=== PATIENT | male | born 1990 | race Caucasian/White ===

== ENCOUNTER 2018-01-02 20:32 | Emergency (ER) | payer MEDICARE, OTHER ==
[~2018-01-02] VITALS: Ht 167.6 cm; Wt 51.0 kg
[~2018-01-02 20:32] MED LIST: CALTTAB5 PO; DOXY100T PO; HYDR10TA16 PO; LEXA5SOL PO; MAGN400T PO; MS C30TA5 PO; OXYC-360 PO; PRED5SOL PO; PREV15CA20 PO; PRIS50TA PO; TAB-TAB PO; VITA100T15 PO; ZOFR8TAB4 PO
[2018-01-02 20:39] VITALS: BP 145/93; PULSE 99; RESP 20; TEMP 97.9; O2SAT 99
[2018-01-02] MEDS ORDERED: SODIUM CHLORIDE 0.9% FLUSH 10 ML FLUSH IVF PRN (21:00)
[2018-01-02] MEDS ORDERED: HYDR-3583 PO (21:10)
[2018-01-02] MEDS ORDERED: ALPR1TAB3 PO (21:10)
[2018-01-02] MEDS ORDERED: FENT100D T-DERMAL (21:10)
[2018-01-02] MEDS ORDERED: LOSA100T PO (21:10)
[2018-01-02] MEDS ORDERED: ZOLP10TA3 PO (21:10)
[2018-01-02] MEDS ORDERED: ESCI20TA PO (21:10)
--- NOTE | 2018-01-02 21:16 | RADRPT ---
EXAM DATE/TIME: 01/02/2018 20:57 [facility] COMPARISON: No previous studies available for comparison. INDICATIONS : Syncopal episode. MEDICAL HISTORY : Wegeners Granulomatosis. Renal disease. SURGICAL HISTORY : None. ENCOUNTER: Initial ACUITY: 1 day PAIN SCORE: 0/10 LOCATION: Bilateral chest FINDINGS: A single view of the chest demonstrates the lungs to be symmetrically aerated without evidence of mas s, infiltrate or effusion. The cardiomediastinal contours are unremarkable. Osseous structures are intact. CONCLUSION: No evidence of acute cardiopulmonary disease. Da Perez MD on January 02, 2018 at 21:14 Board Certified Radiologist. This report was verified electronically.
[2018-01-02 21:26] LABS: AUTOMATED NEUTROPHIL # 5.3 TH/MM3 (1.8-7.7); BASOPHIL % 0.3 % (0.0-2.0); EOSINOPHIL # 0.2 TH/MM3 (0-0.4); EOSINOPHIL % 2.8 % (0.0-4.0); HEMATOCRIT 33.4 % (39.0-51.0); HEMOGLOBIN 10.6 GM/DL (13.0-17.0); LYMPH % 34.2 % (9.0-44.0); MEAN CELL VOLUME 96.8 FL (80.0-100.0); MEAN CORPUSCULAR HEMOGLOBIN 30.7 PG (27.0-34.0); MEAN CORPUSCULAR HGB CONC 31.7 % (32.0-36.0); MEAN PLATELET VOLUME 8.8 FL (7.0-11.0); MONO % 1.3 % (0.0-8.0); MONOCYTE # 0.1 TH/MM3 (0-0.9); NEUT % 61.4 % (16.0-70.0); PLATELET COUNT 218 TH/MM3 (150-450); RED BLOOD COUNT 3.45 MIL/MM3 (4.50-5.90); RED CELL DISTRIBUTION WIDTH 16.4 % (11.6-17.2); WHITE BLOOD COUNT 8.7 TH/MM3 (4.0-11.0)
[2018-01-02 21:34] LABS: ALBUMIN 3.9 GM/DL (3.4-5.0); AST (GOT) 45 U/L (15-37); BICARBONATE 20.8 MEQ/L (21.0-32.0); BLOOD UREA NITROGEN 37 MG/DL (7-18); CALCIUM 8.2 MG/DL (8.5-10.1); CHLORIDE 98 MEQ/L (98-107); CREATININE 7.53 MG/DL (0.60-1.30); GLOMERULAR FILTRATION RATE 9 ML/MIN (>89); GLUCOSE,RANDOM 268 MG/DL (74-106); SODIUM (NA) 137 MEQ/L (136-145)
[2018-01-02 21:36] LABS: ACETAMINOPHEN 3.7 MCG/ML (10.0-30.0); ALT (GPT) 83 U/L (12-78)
[2018-01-02 21:37] LABS: ALKALINE PHOSPHATASE 205 U/L (45-117); TOTAL BILIRUBIN ADULT 0.3 MG/DL (0.2-1.0); TOTAL PROTEIN 6.9 GM/DL (6.4-8.2)
[2018-01-02] MEDS: NALOXONE HCL 0.4 MG/ML AMP IV PUSH PRN ×2 (22:08→23:50)
[2018-01-02 23:44] VITALS: BP 89/53; PULSE 75; RESP 15; O2SAT 95
[2018-01-03 01:08] VITALS: BP 92/48; PULSE 83; RESP 15; O2SAT 98
--- NOTE | 2018-01-03 02:55 | PD ---
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 and , now he is on chronic opioid fentanyl and PO opioids , tonight his mother found him face down on the floor unresponsive PFSH Past Medical History Asthma: No Autoimmune Disease: Yes (MAYRA'S GRANULOMATOSIS) Blood Disorders: Yes (MAYRA'S GRANULOMATOSIS) Anxiety: Yes Depression: Yes Cancer: No Cardiovascular Problems: No Diabetes: No Endocrine: No Gastrointestinal Disorders: Yes Glaucoma: No Genitourinary: No Headaches: Yes Hepatitis: No Hiatal Hernia: No Hypertension: No Immune Disorder: Yes (IGA DEFICIENCY, GOES TO [facility]) Medical other: Yes (AUTOIMMUNE DISEASE, IGA LEVELS LOW) Musculoskeletal: No Neurologic: Yes Psychiatric: Yes Reproductive: No Respiratory: Yes (PULMONARY HEMORRHAGE IN FEBRUARY 28 R/T NEW ONSET MAYRA'S GRANULOMATOSIS) Sickle Cell Disease: No Thyroid Disease: No Ulcer: Yes Past Surgical History Abdominal Surgery: No Cardiac Surgery: No Ear Surgery: No Endocrine Surgery: No Eye Surgery: No Genitourinary Surgery: No Gynecologic Surgery: No Neurologic Surgery: No Oral Surgery: No Pacemaker: No Thoracic Surgery: No Other Surgery: Yes (PORT PLACEMENT APRIL 20 2010) Social History Alcohol Use: No Tobacco Use: No Substance Use: No Allergies-Medications (Allergen,Severity, Reaction): Coded Allergies: cefazolin (Unverified Allergy, Severe, 06/05/17) SCALP ICHY diphenhydramine (Unverified Allergy, Severe, HIVES, 06/05/17) fentanyl (Unverified Allergy, Severe, Hallucinations, 06/05/17) zolpidem (Unverified Adverse Reaction, Severe, sleep walking, 06/05/17) Reported Meds & Prescriptions Reported Meds & Active Scripts Active Narcan Nasal [place] (Naloxone HCl) 4 Mg/Act [place] 4 Mg NASAL ONCE PRN Contents of 1 nasal spray as a single dose; may repeat every 2 to 3 minutes in alternating nostrils until medical assistance becomes available. Reported Fentanyl Patch 72 HR (Fentanyl) 100 Mcg/Hr Patch 100 Mcg T-DERMAL Q72H Remove old patch when new one placed. Alprazolam 1 Mg Tab 1 Mg PO Q8H PRN Losartan (Losartan Potassium) 100 Mg Tab 100 Mg PO DAILY Zolpidem (Zolpidem Tartrate) 10 Mg Tab 20 Mg PO HS PRN Escitalopram (Escitalopram Oxalate) 20 Mg Tab 20 Mg PO DAILY Hydrocodone-Acetaminophen 10-325 mg Tab 1 Tab PO Q6H PRN Review of Systems ROS Limitations: Altered Mental Status, Other: (opioid overdose) Except as stated in HPI: all other systems reviewed are Neg Physical Exam Narrative GENERAL: Patient is somnolent with blood at his right nare skin is somewhat pale SKIN: Warm and dry. HEAD: Atraumatic. Normocephalic. EYES: Pupils equal and round. No scleral icterus. No injection or drainage. ENT: No nasal bleeding or discharge. Mucous membranes pink and moist. Blood from the right nare NECK: Trachea midline. No JVD. CARDIOVASCULAR: Regular rate and rhythm. RESPIRATORY: No accessory muscle use. Clear to auscultation. Breath sounds equal bilaterally. GASTROINTESTINAL: Abdomen soft, non-tender, nondistended. Hepatic and splenic margins not palpable. MUSCULOSKELETAL: Extremities without clubbing, cyanosis, or edema. No obvious deformities. NEUROLOGICAL: Awake somnolent but arousable obvious intox...... no obvious cranial nerve deficits. PSYCHIATRIC: Appropriate mood and affect;. Data Data Last Documented VS Vital Signs Date Time Temp Pulse Resp B/P (MAP) Pulse Ox O2 Delivery O2 Flow Rate FiO2 01/03/18 07:46 01/03/18 05:41 93 Room Air 01/03/18 01:08 83 15 01/02/18 20:39 97.9 Orders Orders Complete Blood Count With Diff (01/02/18 20:52) Comprehensive Metabolic Panel (01/02/18 20:52) Chest, Single Ap (01/02/18 20:52) Iv Access Insert/Monitor (01/02/18 20:52) Ecg Monitoring (01/02/18 20:52) Oximetry (01/02/18 20:52) Sodium Chloride 0.9% Flush (Ns Flush) (01/02/18 21:00) Alcohol (Ethanol) (01/02/18 20:52) Salicylates (Aspirin) (01/02/18 20:52) Tylenol (Acetaminophen) (01/02/18 20:52) Naloxone Inj (Narcan Inj) (01/02/18 22:00) Ct Facial Bones W/O Iv Cont (01/03/18 ) Ed Discharge Order (01/03/18 06:09) Electrocardiogram (01/02/18 20:43) Labs Laboratory Tests Test 01/02/18 21:03 White Blood Count 8.7 TH/MM3 Red Blood Count 3.45 MIL/MM3 Hemoglobin 10.6 GM/DL Hematocrit 33.4 % Mean Corpuscular Volume 96.8 FL Mean Corpuscular Hemoglobin 30.7 PG Mean Corpuscular Hemoglobin Concent 31.7 % Red Cell Distribution Width 16.4 % Platelet Count 218 TH/MM3 Mean Platelet Volume 8.8 FL Neutrophils (%) (Auto) 61.4 % Lymphocytes (%) (Auto) 34.2 % Monocytes (%) (Auto) 1.3 % Eosinophils (%) (Auto) 2.8 % Basophils (%) (Auto) 0.3 % Neutrophils # (Auto) 5.3 TH/MM3 Lymphocytes # (Auto) 3.0 TH/MM3 Monocytes # (Auto) 0.1 TH/MM3 Eosinophils # (Auto) 0.2 TH/MM3 Basophils # (Auto) 0.0 TH/MM3 CBC Comment DIFF FINAL Differential Comment Blood Urea Nitrogen 37 MG/DL Creatinine 7.53 MG/DL Random Glucose 268 MG/DL Total Protein 6.9 GM/DL Albumin 3.9 GM/DL Calcium Level 8.2 MG/DL Alkaline Phosphatase 205 U/L Aspartate Amino Transf (AST/SGOT) 45 U/L Alanine Aminotransferase (ALT/SGPT) 83 U/L Total Bilirubin 0.3 MG/DL Sodium Level 137 MEQ/L Potassium Level 5.5 MEQ/L Chloride Level 98 MEQ/L Carbon Dioxide Level 20.8 MEQ/L Anion Gap 18 MEQ/L Estimat Glomerular Filtration Rate 9 ML/MIN Salicylates Level 2.2 MG/DL Acetaminophen Level 3.7 MCG/ML Ethyl Alcohol Level LESS THAN 3 MG/DL MDM Medical Decision Making Medical Screen Exam Complete: Yes Emergency Medical Condition: Yes Differential Diagnosis accidental overdose vs intentional overdose of fentanyl and also self inflicted nasal injury or scratching clot of Wegners Vasculitis chronic bleeding nasal Narrative Course pt observed and after 8 hrs in ER safe for discharge so that he can go for Dialysis today to keep his schedule T Th Sat Diagnosis Primary Impression: Narcotic overdose Patient Instructions: Adult Overdose (ED), General Instructions Scripts Naloxone Nasal [place] (Narcan Nasal [place]) 4 Mg/Act [place] 4 MG NASAL ONCE Y for OPIOID OVERDOSE, #1 BOTTLE 0 Refills Contents of 1 nasal spray as a single dose; may repeat every 2 to 3 minutes in alternating nostrils until medical assistance becomes available. Prov: Angel Potter MD 01/03/18 Disposition: 01 DISCHARGE HOME Condition: Good Angel Potter MD Jan 03, 2018 02:55
--- NOTE | 2018-01-03 05:15 | RADRPT ---
EXAM DATE/TIME: 01/03/2018 04:59 [facility] COMPARISON: No previous studies available for comparison. INDICATIONS : Trauma, bloody nose. Patient tried to fix deviated septum with a screwdriver. RADIATION DOSE: 37.73 CTDIvol (mGy) MEDICAL HISTORY : Wegeners Granulomatosis. Renal disease. SURGICAL HISTORY : None. ENCOUNTER: Initial ACUITY: 1 day PAIN SCORE: 2/10 LOCATION: facial TECHNIQUE: Volumetric scanning of the facial bones was performed. Using automated exposure control and adjustme nt of the mA and/or kV according to patient size, radiation dose was kept as low as reasonably achiev able to obtain optimal diagnostic quality images. DICOM format image data is available electronicall y for review and comparison. FINDINGS: ORBITS: The orbital and infraorbital osseous structures are intact. The retroconal structures have a normal configuration. No radiopaque foreign bodies are seen. NASAL BONE: The nasal bone and maxillary spine are intact ZYGOMATIC ARCHES: Symmetric without evidence of fracture. SINUSES: The maxillary, ethmoid and frontal sinuses are intact. No air-fluid levels seen. NASAL CAVITY: The nasal septum is intact and minimally deviated towards the right. The lacrimal ducts are intact. SOFT TISSUES: No radiopaque foreign bodies seen. No soft-tissue swelling is seen. INTRACRANIAL: No intracranial air seen. CRIBIFORM PLATE: Grossly intact. CONCLUSION: 1. Nasal septum is intact and minimally deviated towards the patient's right. Karson Rizvi Jr., MD on January 03, 2018 at 5:12 Board Certified Radiologist. This report was verified electronically.
[2018-01-03] MEDS ORDERED: NALO1SPR NASAL (06:43)
--- NOTE | 2018-01-03 13:55 | EKG ---
Date Performed: 01/02/2018 Time Performed: 20:43:57 PTAGE: 27 years EKG: Sinus rhythm LEFT ATRIAL ENLARGEMENT POSSIBLE RIGHT VENTRICULAR CONDUCTION DELAY POSSIBLE LEFT VENTRICULAR HYPERT ROPHY ABNORMAL ECG NO PREVIOUS TRACING DOCTOR: Lisa Mera Interpretating Date/Time 01/03/2018 13:51:38
== END 2018-01-03 07:47 | disposition home or self-care (01) ==
LOC: NEPC 20:32
DX: T40.601A Poisoning by unspecified narcotics, accidental (unintentional), initial encounter (principal); R94.31 Abnormal electrocardiogram [ECG] [EKG]; M81.8 Other osteoporosis without current pathological fracture; T38.0X5A Adverse effect of glucocorticoids and synthetic analogues, initial encounter; M31.30 Wegener's granulomatosis without renal involvement; F41.8 Other specified anxiety disorders; Z87.19 Personal history of other diseases of the digestive system; Z86.69 Personal history of other diseases of the nervous system and sense organs
CPT/HCPCS: 70486; 71045; 80053; 80307; 85025; 93005; 96374; 99285; J2310

== ENCOUNTER 2018-03-19 13:48 | Inpatient (IN) | payer MEDICARE, OTHER ==
[~2018-03-19] VITALS: Ht 170.2 cm; Wt 52.3 kg
[2018-03-19 13:48] VITALS: BP 202/104; PULSE 65; RESP 16; TEMP 98.4; O2SAT 98
[~2018-03-19 13:48] MED LIST changes: +ALPR1TAB3 PO; -CALTTAB5 PO; -DOXY100T PO; +ESCI20TA PO; +FENT100D T-DERMAL; +HYDR-3583 PO; -HYDR10TA16 PO; -LEXA5SOL PO; +LOSA100T PO; -MAGN400T PO; -MS C30TA5 PO; +NALO1SPR NASAL; -OXYC-360 PO; -PRED5SOL PO; -PREV15CA20 PO; -PRIS50TA PO; -TAB-TAB PO; -VITA100T15 PO; -ZOFR8TAB4 PO; +ZOLP10TA3 PO
--- NOTE | 2018-03-19 14:02 | PD ---
HPI Chief Complaint: Seizure Time Seen by Provider: 13:54 Travel History International Travel<30 days: No Contact w/Intl Traveler<30days: No History of Present Illness HPI 27-year-old male, history of Nubia's granulomatosis, end-stage renal vascular to see if there is a Sunday, hypertension, history of IgA deficiency, hypogammaglobulinemia, chronic back pain spinal stenosis herniated disc, DVT. He also has chronic opioid therapy for chronic pain previous overdose in December of this year. He is brought in by EMS after he had multiple seizures during dialysis. He reports he has had seizures before but I do not see this documented in chart anywhere. He had 3 seizures with dialysis, and one seizure with EMS. He was given 2 mg of IM Versed. Patient states his last seizure was in December. He states he gets seizures "not very often". Denies any other complaints now. Completed half of dialysis today. History Past Medical History Narrative Medical Nubia's granulomatosis Spinal stenosis, osteoporosis, on chronic opiates End-stage renal disease, on Sunday Hypertension Social History Alcohol Use: No Tobacco Use: No Allergies-Medications (Allergen,Severity, Reaction): Coded Allergies: cefazolin (Unverified Allergy, Severe, 03/19/18) SCALP ICHY diphenhydramine (Unverified Allergy, Severe, HIVES, 03/19/18) fentanyl (Unverified Allergy, Severe, Hallucinations, 03/19/18) zolpidem (Unverified Adverse Reaction, Severe, sleep walking, 03/19/18) Reported Meds & Prescriptions Reported Meds & Active Scripts Active Narcan Nasal [place] (Naloxone HCl) 4 Mg/Act [place] 4 Mg NASAL ONCE PRN Contents of 1 nasal spray as a single dose; may repeat every 2 to 3 minutes in alternating nostrils until medical assistance becomes available. Reported Fentanyl Patch 72 HR (Fentanyl) 100 Mcg/Hr Patch 100 Mcg T-DERMAL Q72H Remove old patch when new one placed. Alprazolam 1 Mg Tab 1 Mg PO Q8H PRN Losartan (Losartan Potassium) 100 Mg Tab 100 Mg PO DAILY Zolpidem (Zolpidem Tartrate) 10 Mg Tab 20 Mg PO HS PRN Escitalopram (Escitalopram Oxalate) 20 Mg Tab 20 Mg PO DAILY Hydrocodone-Acetaminophen 10-325 mg Tab 1 Tab PO Q6H PRN Review of Systems Except as stated in HPI: all other systems reviewed are Neg Physical Exam Narrative GENERAL: 27-year-old man, generally well-appearing, no acute distress at this time. SKIN: Focused skin assessment warm/dry. HEAD: Atraumatic. Normocephalic. EYES: Pupils equal and round. No scleral icterus. No injection or drainage. ENT: No nasal bleeding or discharge. Mucous membranes pink and moist. NECK: Trachea midline. No JVD. CARDIOVASCULAR: Regular rate and rhythm. No murmur appreciated. RESPIRATORY: No accessory muscle use. Clear to auscultation. Breath sounds equal bilaterally. GASTROINTESTINAL: Abdomen soft, non-tender, nondistended. Hepatic and splenic margins not palpable. MUSCULOSKELETAL: No obvious deformities. No clubbing. No cyanosis. No edema. NEUROLOGICAL: Awake and alert. No obvious cranial nerve deficits. Motor grossly within normal limits. Normal speech. PSYCHIATRIC: Appropriate mood and affect; insight and judgment normal. Data Data Last Documented VS Vital Signs Date Time Temp Pulse Resp B/P (MAP) Pulse Ox O2 Delivery O2 Flow Rate FiO2 03/19/18 16:00 58 16 200/104 (136) 98 Room Air 03/19/18 13:48 98.4 Orders Orders Complete Blood Count With Diff (03/19/18 14:18) Electrocardiogram (03/19/18 ) Ct Brain W/O Iv Contrast(Rout) (03/19/18 ) Blood Glucose (03/19/18 14:18) Ecg Monitoring (03/19/18 14:18) Iv Access Insert/Monitor (03/19/18 14:18) Oximetry (03/19/18 14:18) Comprehensive Metabolic Panel (03/19/18 14:18) Sodium Chloride 0.9% Flush (Ns Flush) (03/19/18 14:30) Acetamin-Hydrocod 325-5 Mg ([place] 5-325 (03/19/18 16:00) Clonidine (Catapres) (03/19/18 16:30) Admit Order (Ed Use Only) (03/19/18 ) Labs Laboratory Tests Test 03/19/18 14:30 03/19/18 15:20 White Blood Count 3.2 TH/MM3 Red Blood Count 3.47 MIL/MM3 Hemoglobin 10.4 GM/DL Hematocrit 31.1 % Mean Corpuscular Volume 89.6 FL Mean Corpuscular Hemoglobin 30.0 PG Mean Corpuscular Hemoglobin Concent 33.5 % Red Cell Distribution Width 15.3 % Platelet Count 120 TH/MM3 Mean Platelet Volume 11.6 FL Neutrophils (%) (Auto) 69.6 % Lymphocytes (%) (Auto) 21.0 % Monocytes (%) (Auto) 7.0 % Eosinophils (%) (Auto) 1.2 % Basophils (%) (Auto) 1.2 % Neutrophils # (Auto) 2.3 TH/MM3 Lymphocytes # (Auto) 0.7 TH/MM3 Monocytes # (Auto) 0.2 TH/MM3 Eosinophils # (Auto) 0.0 TH/MM3 Basophils # (Auto) 0.0 TH/MM3 CBC Comment DIFF FINAL Differential Comment Blood Urea Nitrogen 20 MG/DL Creatinine 5.52 MG/DL Random Glucose 78 MG/DL Total Protein 6.3 GM/DL Albumin 3.6 GM/DL Calcium Level 8.9 MG/DL Alkaline Phosphatase 101 U/L Aspartate Amino Transf (AST/SGOT) 12 U/L Alanine Aminotransferase (ALT/SGPT) 18 U/L Total Bilirubin 0.6 MG/DL Sodium Level 142 MEQ/L Potassium Level 4.0 MEQ/L Chloride Level 105 MEQ/L Carbon Dioxide Level 26.6 MEQ/L Anion Gap 10 MEQ/L Estimat Glomerular Filtration Rate 13 ML/MIN MDM Medical Decision Making Medical Screen Exam Complete: Yes Emergency Medical Condition: Yes Interpretation(s) My review of EKG: Normal sinus rhythm rate of 61, normal axis, QTC is a little bit long at 478., incomplete right bundle, no definite evidence of acute ischemia. LABS: CBC is remarkable for mild anemia. CMP is remarkable for elevated BUN and creatinine. Head CT: Mild diffuse cerebral atrophy, out of proportion age. No acute intracranial abnormality. Differential Diagnosis Seizure, head injury, bleed, other Narrative Course Medical decision making This 27-year-old man presents to the emergency department complaining of multiple seizures dialysis. He reports a history of seizures but do not find this documented anywhere. Will try to clarify this. In some of the labs from nephrology there is a mention of altered and may, etiology unclear seizure versus medical will check labs, CT head, seizure precautions, reassess. FINAL: Patient multiple seizures today. Looks well. Blood pressures pretty elevated. Had half of dialysis. We will give clonidine to treat the high blood pressure. Patient states he took all his medicines this morning. Will admit for observation given the seizures. Diagnosis Primary Impression: Seizure Admitting Information Admitting Physician Requests: Gage Luque MD March 19, 2018 14:02
[2018-03-19 14:15] VITALS: BP 188/104; PULSE 54; RESP 16; O2SAT 98
[2018-03-19] MEDS ORDERED: SODIUM CHLORIDE 0.9% FLUSH 10 ML FLUSH IVF PRN (14:30)
[2018-03-19 15:04] LABS: AUTOMATED NEUTROPHIL # 2.3 TH/MM3 (1.8-7.7); BASOPHIL % 1.2 % (0.0-2.0); EOSINOPHIL % 1.2 % (0.0-4.0); HEMATOCRIT 31.1 % (39.0-51.0); HEMOGLOBIN 10.4 GM/DL (13.0-17.0); LYMPHOCYTE # 0.7 TH/MM3 (1.0-4.8); MEAN CELL VOLUME 89.6 FL (80.0-100.0); MEAN CORPUSCULAR HGB CONC 33.5 % (32.0-36.0); MEAN PLATELET VOLUME 11.6 FL (7.0-11.0); MONOCYTE # 0.2 TH/MM3 (0-0.9); NEUT % 69.6 % (16.0-70.0); PLATELET COUNT 120 TH/MM3 (150-450); RED BLOOD COUNT 3.47 MIL/MM3 (4.50-5.90); RED CELL DISTRIBUTION WIDTH 15.3 % (11.6-17.2); WHITE BLOOD COUNT 3.2 TH/MM3 (4.0-11.0)
--- NOTE | 2018-03-19 15:07 | RADRPT ---
EXAM DATE: 03/19/2018 3:03 PM EDT AGE/SEX: 27 years / Male INDICATIONS: Seizure. CLINICAL DATA: This is the patient's initial encounter. Patient reports that signs and symptoms have been present for 1 day and indicates a pain score of 0/10. MEDICAL/SURGICAL HISTORY: Cardiovascular disease. Wegeners granulomatosis. None. RADIATION DOSE: 56.35 CTDI (mGy) COMPARISON: No prior [place] exams available for comparison. TECHNIQUE: CT of the head without contrast. Using automated exposure control and adjustment of the mA and/or kV according to patient size, radiation dose was kept as low as reasonably achievable to ob tain optimal diagnostic quality images. FINDINGS: Cerebrum: Mild diffuse cerebral atrophy out of proportion to age. The ventricles are normal for degr ee of atrophy. No evidence of midline shift, mass lesion, hemorrhage or acute infarction. No extraax ial fluid collections are seen. Posterior Fossa: The cerebellum and brainstem are intact. The 4th ventricle is midline. The cerebe llopontine angle is unremarkable. Extracranial: The visualized portion of the orbits is intact. Skull: The calvaria is intact. No evidence of skull fracture. CONCLUSION: 1. Mild diffuse cerebral atrophy out of proportion to age. 2. No acute intracranial abnormality. Electronically signed by: Dieter Pratt MD 03/19/2018 3:05 PM EDT
[2018-03-19 15:59] LABS: ALBUMIN 3.6 GM/DL (3.4-5.0); AST (GOT) 12 U/L (15-37); BICARBONATE 26.6 MEQ/L (21.0-32.0); BLOOD UREA NITROGEN 20 MG/DL (7-18); CALCIUM 8.9 MG/DL (8.5-10.1); CHLORIDE 105 MEQ/L (98-107); CREATININE 5.52 MG/DL (0.60-1.30); GLOMERULAR FILTRATION RATE 13 ML/MIN (>89); GLUCOSE,RANDOM 78 MG/DL (74-106); SODIUM (NA) 142 MEQ/L (136-145)
[2018-03-19 16:00] VITALS: BP 200/104; PULSE 58; RESP 16; O2SAT 98
[2018-03-19] MEDS ORDERED: ACETAMINOPHEN/HYDROcodone 325 MG/5 MG TAB PO ONE (16:00)
[2018-03-19 16:02] LABS: ALKALINE PHOSPHATASE 101 U/L (45-117); ALT (GPT) 18 U/L (12-78); TOTAL BILIRUBIN ADULT 0.6 MG/DL (0.2-1.0); TOTAL PROTEIN 6.3 GM/DL (6.4-8.2)
[2018-03-19] MEDS ORDERED: cloNIDine HCL 0.2 MG TAB PO ONE (16:30)
--- NOTE | 2018-03-19 16:57 | HHI.HP ---
[facility] Service Family Medicine Primary Care Physician Jaswant Brink MD Admission Diagnosis Diagnoses: International Travel<30 Days: No Contact w/Intl Traveler<30days: No Known Affected Area: No History of Present Illness Patient is a 27-year-old male with past history of Nubia's granulomatosis, seizures, ESRD, osteoporosis, chronic back pain who presents today following a seizure. Patient reports he was at dialysis today when he had a seizure-like episode. He is unsure if it was witnessed, EMR reports that EMS reports several seizures during dialysis. There may have been up to 3 seizures with dialysis and one seizure with EMS. He was given 2 mg of IM Versed. He reports he has had one seizure before, "years ago." Currently reports he is somewhat sleepy, however no lightheadedness, dizziness, headache, change in vision, localized weakness, numbness, tingling, cough, shortness of breath, chest pain, arm or jaw pain, abdominal pain. He does note he mildly bit his tongue. He does note continued back pain which he states is secondary to his chronic osteoporosis, notes he is on chronic opioids for this. No other complaints at this time. Review of Systems Constitutional: COMPLAINS OF: Fatigue, DENIES: Fever, Weight gain, Weight loss , Chills Endocrine: DENIES: Polydipsia, Polyuria Eyes: DENIES: Blurred vision, Diplopia, Eye inflammation, Eye pain, Vision loss , Photosensitivity, Double Vision Ears, nose, mouth, throat: DENIES: Tinnitus, Hearing loss, Nasal discharge, Throat pain, Ear Pain, Running Nose, Epistaxis Respiratory: DENIES: Cough, Snoring, Wheezing, Hemoptysis, Sputum production, Shortness of breath Cardiovascular: COMPLAINS OF: Syncope, DENIES: Chest pain Gastrointestinal: DENIES: Abdominal pain, Black stools, Bloody stools, Constipation, Diarrhea, Nausea, Vomiting, Anorexia Genitourinary: COMPLAINS OF: Urinary frequency, Dysuria, DENIES: Urgency Musculoskeletal: COMPLAINS OF: Joint pain (back pain), DENIES: Muscle aches Integumentary: DENIES: Abnormal pigmentation, Rash Hematologic/lymphatic: DENIES: Bruising, Lymphadenopathy Immunologic/allergic: DENIES: Eczema, Urticaria Neurologic: COMPLAINS OF: Abnormal gait (chronic, right hip with avascular necrosis), Localized weakness (chronic weak), Seizures, DENIES: Headache, Paresthesias, Speech Problems Psychiatric: DENIES: Anxiety, Confusion, Suicidal Ideation, Homicidal Ideation Past Family Social History Past Medical History Zack granulomatosis, ESRD Osteoporosis HTN Past Surgical History Fistula Left arm Allergies: Coded Allergies: cefazolin (Unverified Allergy, Severe, 03/19/18) SCALP ICHY diphenhydramine (Unverified Allergy, Severe, HIVES, 03/19/18) fentanyl (Unverified Allergy, Severe, Hallucinations, 03/19/18) zolpidem (Unverified Adverse Reaction, Severe, sleep walking, 03/19/18) Family History Father: heart problems. dm, passed from skin cancer Mother: reflex sympathetic dystrophy, arthritis Social History Lives with mother EtOH: none Tobacco: none Drugs: None Physical Exam Vital Signs Vital Signs Date Time Temp Pulse Resp B/P (MAP) Pulse Ox O2 Delivery O2 Flow Rate FiO2 03/19/18 16:00 58 16 200/104 (136) 98 Room Air 03/19/18 14:15 54 16 188/104 (132) 98 Room Air 03/19/18 14:00 60 16 98 Room Air 03/19/18 13:48 98.4 65 16 202/104 (136) 98 Physical Exam GENERAL: This is a well-nourished, well-developed patient, in no apparent distress. Tired appearing, however easily arousable and responds normally when spoken to. SKIN: No rashes, ecchymoses or lesions. Cool and dry. HEAD: Atraumatic. Normocephalic. No temporal or scalp tenderness. EYES: Pupils equal round and reactive. Extraocular motions intact. No scleral icterus. No injection or drainage. ENT: Nose without bleeding, purulent drainage or septal hematoma. Throat without erythema, tonsillar hypertrophy or exudate. Uvula midline. Airway patent. NECK: Trachea midline. No JVD or lymphadenopathy. Supple, nontender, no meningeal signs. CARDIOVASCULAR: Regular rate and rhythm without gallops, or rubs. Murmur noted. RESPIRATORY: Clear to auscultation. Breath sounds equal bilaterally. No wheezes , rales, or rhonchi. GASTROINTESTINAL: Abdomen soft, non-tender, nondistended. No hepato-splenomegaly , or palpable masses. No guarding. MUSCULOSKELETAL: Extremities without clubbing, cyanosis, or edema. No joint tenderness, effusion, or edema noted. No calf tenderness. Bilateral paraspinal tenderness in lower back, no bony point tenderness. NEUROLOGICAL: Awake and alert. Cranial nerves II through XII intact. Motor and sensory grossly within normal limits. Five out of 5 muscle strength in all muscle groups. Normal speech. Laboratory Laboratory Tests Test 03/19/18 14:30 03/19/18 15:20 White Blood Count 3.2 Red Blood Count 3.47 Hemoglobin 10.4 Hematocrit 31.1 Mean Corpuscular Volume 89.6 Mean Corpuscular Hemoglobin 30.0 Mean Corpuscular Hemoglobin Concent 33.5 Red Cell Distribution Width 15.3 Platelet Count 120 Mean Platelet Volume 11.6 Neutrophils (%) (Auto) 69.6 Lymphocytes (%) (Auto) 21.0 Monocytes (%) (Auto) 7.0 Eosinophils (%) (Auto) 1.2 Basophils (%) (Auto) 1.2 Neutrophils # (Auto) 2.3 Lymphocytes # (Auto) 0.7 Monocytes # (Auto) 0.2 Eosinophils # (Auto) 0.0 Basophils # (Auto) 0.0 CBC Comment DIFF FINAL Differential Comment Blood Urea Nitrogen 20 Creatinine 5.52 Random Glucose 78 Total Protein 6.3 Albumin 3.6 Calcium Level 8.9 Alkaline Phosphatase 101 Aspartate Amino Transf (AST/SGOT) 12 Alanine Aminotransferase (ALT/SGPT) 18 Total Bilirubin 0.6 Sodium Level 142 Potassium Level 4.0 Chloride Level 105 Carbon Dioxide Level 26.6 Anion Gap 10 Estimat Glomerular Filtration Rate 13 Result Diagram: 03/19/18 1430 03/19/18 1520 Caprini VTE Risk Assessment Caprini VTE Risk Assessment: No/Low Risk (score <= 1) Assessment and Plan Assessment and Plan 27-year-old male with past history of Nubia's granulomatosis, seizures, ESRD, osteoporosis, chronic back pain who presented following a seizure during dialysis. Reports previous past history of seizure. Denies being medicated for it. Chronic back pain treated with opioids. Discussed Condition With ER physician Dr. Hernandez Problem List: (1) Seizure ICD Codes: R56.9 - Unspecified convulsions Status: Acute Plan: Patient with seizure-like activity today, none on admission. Self reports 1 previous episode of seizures. Not on chronic seizure medications. -lorazepam 2 mg IV as needed for seizure-like activity -Neurology consult, follow-up recommendations for best chronic seizure treatment with patient's medical history -Follow-up EEG -Seizure precautions, neuro checks every 4, bedrest with bathroom privileges (2) ESRD needing dialysis ICD Codes: N18.6 - End stage renal disease; Z99.2 - Dependence on renal dialysis Plan: Patient with end-stage renal disease on dialysis. Had a seizure care home through dialysis today. -Consult nephrology, reports candy feeder Dr. Hunt, may need further dialysis , follow-up recommendations (3) HTN (hypertension) ICD Codes: I10 - Essential (primary) hypertension Plan: History of hypertension -Continue home medications, losartan 100 mg daily (4) Chronic back pain ICD Codes: M54.9 - Dorsalgia, unspecified; G89.29 - Other chronic pain Plan: History of chronic back pain, reported to be due to osteoporosis secondary to chronic steroid use. On a chronic opioids. -Continue home medication, hydrocodone 10 every 6 hours as needed -Reported fentanyl allergy, will hold for now (5) FEN Plan: Fluids: -Tolerating p.o. Electrolytes: -Monitor and replete as needed Nutrition: -Regular diet Gabe Eaton MD R1 March 19, 2018 16:57
[2018-03-19 17:00] VITALS: BP 188/100; PULSE 52; RESP 16; O2SAT 99
[2018-03-19] MEDS ORDERED: LORazepam 2 MG/ML VIAL IV PUSH PRN (17:15)
[2018-03-19] MEDS ORDERED: SODIUM CHLORIDE 0.9% FLUSH 10 ML FLUSH IV FLUSH PRN (17:15)
[2018-03-19] MEDS ORDERED: ONDANSETRON HCL 4 MG/2 ML VIAL IV PUSH PRN (17:15)
[2018-03-19 17:30] VITALS: BP 175/85; PULSE 54; RESP 16; O2SAT 98
[2018-03-19] MEDS ORDERED: NALOXONE 4 MG NASAL PRN (18:00)
[2018-03-19 20:36] VITALS: BP 180/100; PULSE 63; RESP 16; TEMP 98.1; O2SAT 98
[2018-03-20] VITALS (14 sets, daily range): BP systolic 123–206; BP diastolic 74–111; PULSE 54–77; RESP 16–18; TEMP 97.8–98.9; O2SAT 94–99
[2018-03-20] MEDS: ACETAMINOPHEN/HYDROcodone 325 MG/10 MG TAB PO PRN ×5 (00:13→22:43)
[2018-03-20] MEDS: ZOLPIDEM TARTRATE 10 MG TAB PO PRN ×2 (00:16→22:13)
[2018-03-20] MEDS: cloNIDine HCL 0.1 MG TAB PO PRN ×2 (02:18→13:39)
[2018-03-20] MEDS: ALPRAZolam 1 MG TAB PO PRN ×2 (02:53→13:38)
[2018-03-20] MEDS ORDERED: hydrALAZINE HCL 20 MG/ML VIAL IV PUSH PRN (05:30)
[2018-03-20 07:05] LABS: AUTOMATED NEUTROPHIL # 2.2 TH/MM3 (1.8-7.7); BASOPHIL % 0.5 % (0.0-2.0); EOSINOPHIL % 0.6 % (0.0-4.0); HEMATOCRIT 33.4 % (39.0-51.0); LYMPH % 31.7 % (9.0-44.0); LYMPHOCYTE # 1.1 TH/MM3 (1.0-4.8); MEAN CELL VOLUME 89.4 FL (80.0-100.0); MEAN CORPUSCULAR HEMOGLOBIN 29.6 PG (27.0-34.0); MEAN CORPUSCULAR HGB CONC 33.1 % (32.0-36.0); MEAN PLATELET VOLUME 10.7 FL (7.0-11.0); MONO % 5.4 % (0.0-8.0); MONOCYTE # 0.2 TH/MM3 (0-0.9); NEUT % 61.8 % (16.0-70.0); PLATELET COUNT 133 TH/MM3 (150-450); RED BLOOD COUNT 3.73 MIL/MM3 (4.50-5.90); RED CELL DISTRIBUTION WIDTH 15.3 % (11.6-17.2); WHITE BLOOD COUNT 3.6 TH/MM3 (4.0-11.0)
[2018-03-20] MEDS: SODIUM CHLORIDE 0.9% FLUSH 10 ML FLUSH IV FLUSH SCH ×2 (07:54→20:51)
[2018-03-20] MEDS: LOSARTAN 50 MG TAB PO SCH (07:54)
[2018-03-20] MEDS: ESCITALOPRAM OXALATE 20 MG TAB PO SCH (07:54)
--- NOTE | 2018-03-20 08:24 | HHI.FPPN ---
Subjective Remarks This progress note is written in conjunction with resident H&P dated 03/18/2018. Paul Oakes is a 27yo gentleman with h/o Nubia's disease, ESRD, and h/o one seizure years ago admitted for having seizures while at dialysis. Overnight, his blood pressure was very elevated, requiring addition of clonidine and hydralazine. This morning, he reports headache, frontal. No nausea, vomiting, no vision changes, no unilateral weakness. He complains of back pain, but has not received his fentanyl patch. He reports no allergy to fentanyl. ROS: Per resident H&P. Significant for: headache, back pain. PMH/PSxH/SocHx/FamHx: Per resident H&P. Significant for Nubia's, ESRD, seizure x 1 in the past, osteoporosis, chronic back pain. AV fistula for dialysis. No known neurologic disease in the family. No alcohol, tobacco, or recreational drug use. Objective Vitals Vital Signs Date Time Temp Pulse Resp B/P (MAP) Pulse Ox O2 Delivery O2 Flow Rate FiO2 03/20/18 07:40 98.9 60 18 183/97 (125) 97 03/20/18 06:27 77 18 206/111 (142) 99 03/20/18 03:52 98.0 64 16 184/104 (130) 99 03/20/18 02:10 98.7 60 16 177/104 (128) 95 03/20/18 00:08 98.9 59 16 189/109 (135) 98 03/19/18 20:36 98.1 63 16 180/100 (126) 98 03/19/18 18:38 03/19/18 17:30 54 16 175/85 (115) 98 Room Air 03/19/18 17:00 52 16 188/100 (129) 99 Room Air 03/19/18 16:00 58 16 200/104 (136) 98 Room Air 03/19/18 14:15 54 16 188/104 (132) 98 Room Air 03/19/18 14:00 60 16 98 Room Air 03/19/18 13:48 98.4 65 16 202/104 (136) 98 Result Diagram: 03/20/18 0513 03/19/18 1520 Objective Remarks Per resident H&P. Significant for: In NAD, no resp distress, nontoxic. RRR, S1 S2. 2/6 systolic murmur heard at LUSB and LLSB. S4 audible. Neurologic grossly WNL. No edema. AV fistula left arm. A/P Assessment and Plan 27-year-old male with past history of Nubia's granulomatosis, seizure, ESRD, osteoporosis, chronic back pain who presented following a seizure during dialysis. Attending Attestation Patient seen, examined, and discussed with resident team. Problem List: (1) Seizure ICD Codes: R56.9 - Unspecified convulsions Status: Acute Plan: Patient with seizure-like activity on the day of admission; no seizures overnight. Self reports 1 previous episode of seizure. Not on chronic seizure medications. -lorazepam 2 mg IV as needed for seizure-like activity -Neurology consult, follow-up recommendations for best chronic seizure treatment with patient's medical history -Follow-up EEG -Check Brain MRI. CT head without contrast with cerebral atrophy out of proportion to patient's age. -Seizure precautions, neuro checks every 4, bedrest with bathroom privileges (2) ESRD needing dialysis ICD Codes: N18.6 - End stage renal disease; Z99.2 - Dependence on renal dialysis Status: Chronic Plan: Patient with end-stage renal disease on dialysis. Had a seizure longterm through dialysis today. -Consult nephrology, reports data security consultant Dr. Hunt, may need further dialysis , follow-up recommendations (3) HTN (hypertension) ICD Codes: I10 - Essential (primary) hypertension Status: Chronic Plan: History of hypertension -Continue home medications, losartan 100 mg daily Clonidine and hydralazine have been added for hypertensive urgency overnight. (4) Chronic back pain ICD Codes: M54.9 - Dorsalgia, unspecified; G89.29 - Other chronic pain Status: Chronic Plan: History of chronic back pain, reported to be due to osteoporosis secondary to chronic steroid use. On a chronic opioids. -Continue home medication, hydrocodone 10 every 6 hours as needed -Restart home fentanyl patch; pt confirms that he does NOT have an allergy to fentanyl. (5) Pancytopenia ICD Codes: D61.818 - Other pancytopenia Plan: ? secondary to ESRD. Possibly dilutional. Will check CBC in AM. Leonie De Suoza MD March 20, 2018 08:24
[2018-03-20] MEDS ORDERED: SODIUM CHLOR 0.9% 1000 ML INJ 1,000 ML IV PRN (08:40)
[2018-03-20] MEDS ORDERED: SODIUM CHLOR 0.9% 1000 ML INJ 1,000 ML OTHER PRN ×2 (08:40)
[2018-03-20] MEDS ORDERED: MANNITOL 12.5 GM/50 ML VIAL IV PRN (08:45)
[2018-03-20] MEDS ORDERED: ACETAMINOPHEN 325 MG TAB PO PRN (08:45)
[2018-03-20] MEDS ORDERED: HEPARIN SODIUM - IV 10,000 UNITS/10 ML VIAL IV FLUSH PRN (08:45)
[2018-03-20] MEDS ORDERED: cloNIDine HCL 0.1 MG TAB PO PRN (08:45)
[2018-03-20] MEDS ORDERED: NITROGLYCERIN 0.4 MG SL 25 TABS/BTL SL PRN (08:45)
[2018-03-20] MEDS ORDERED: GENTAMICIN SULFATE 20 MG/2 ML VIAL OTHER PRN (08:45)
[2018-03-20] MEDS ORDERED: GELATIN 12 MM/7 MM FOAM TOP PRN (08:45)
[2018-03-20] MEDS ORDERED: ALBUMIN 25% INJ 100 ML IV PRN (08:45)
[2018-03-20] MEDS ORDERED: HEPARIN SODIUM - IV 10,000 UNITS/10 ML VIAL PRN (08:45)
[2018-03-20] MEDS ORDERED: SODIUM CHLORIDE 0.9% FLUSH 10 ML FLUSH IV FLUSH PRN (08:45)
[2018-03-20] MEDS: fentaNYL 100 MCG/HR PATCH T-DERMAL SCH ×2 (09:00→14:47)
--- NOTE | 2018-03-20 09:41 | PD.CONS ---
HPI Service Nephrology Consult Requested By Reason for Consult ESRD on HD Primary Care Physician Jaswant Brink MD History of Present Illness This is a 27 y/o male with PMH that includes HTN, ESRD on HD TTS, chronic pain, and anemia. He also reports a hx of seizures, last one in December. He was at dialysis yesterday when 2 hrs into treatment he had a grand mal seizure. EMS was called, he apparently had another while in route. Today he is awake and alert, no specific complaints at this time. His electrolyte profile is unremarkable. We were consulted for dialysis management. (Janie Phelan) Review of Systems Constitutional: DENIES: Fatigue, Fever, Weight gain Eyes: DENIES: Blurred vision, Diplopia Musculoskeletal: COMPLAINS OF: Stiffness, Back pain Neurologic: COMPLAINS OF: Seizures, DENIES: Speech Problems, Tremor, Poor Balance (Janie Phelan) Past Family Social History Allergies: Coded Allergies: cefazolin (Unverified Allergy, Severe, 03/19/18) SCALP ICHY diphenhydramine (Unverified Allergy, Severe, HIVES, 03/19/18) fentanyl (Unverified Allergy, Severe, Hallucinations, 03/19/18) zolpidem (Unverified Adverse Reaction, Severe, sleep walking, 03/19/18) Past Medical History Zack granulomatosis, ESRD on HD TTS Seizure Hx chronic pain, narcotic dependence Osteoporosis HTN Past Surgical History Fistula Left arm Reported Medications Fentanyl Patch 72 HR (Fentanyl) 100 Mcg/Hr Patch 100 Mcg T-DERMAL Q72H Remove old patch when new one placed. Alprazolam 1 Mg Tab 1 Mg PO Q8H PRN Losartan (Losartan Potassium) 100 Mg Tab 100 Mg PO DAILY Zolpidem (Zolpidem Tartrate) 10 Mg Tab 20 Mg PO HS PRN Escitalopram (Escitalopram Oxalate) 20 Mg Tab 20 Mg PO DAILY Hydrocodone-Acetaminophen 10-325 mg Tab 1 Tab PO Q6H PRN doxazosin 4 mg HS Metoprolol 50 mg BID Active Ordered Medications Current Medications Medications (Trade) Dose Ordered Sig/Sourav Route Start Time Stop Time Status Last Admin (NS Flush) 2 ml UNSCH PRN IV FLUSH 03/19/18 17:15 (NS Flush) 2 ml BID IV FLUSH 03/19/18 21:00 03/20/18 07:54 (Ativan Inj) 2 mg UNSCH PRN IV PUSH 03/19/18 17:15 (Zofran Inj) 4 mg Q6H PRN IV PUSH 03/19/18 17:15 (Xanax) 1 mg Q8H PRN PO 03/19/18 18:00 03/20/18 02:53 (Lexapro) 20 mg DAILY PO 03/20/18 09:00 03/20/18 07:54 (Cozaar) 100 mg DAILY PO 03/20/18 09:00 03/20/18 07:54 (Ambien) 20 mg HS PRN PO 03/19/18 18:00 03/20/18 00:16 Patient Own Medication PT OWN MED: Nalox... ONCE PRN NASAL 03/19/18 18:00 03/24/18 17:59 Future Hold ([place] 10-325 Mg) 1 tab Q6H PRN PO 03/19/18 18:15 03/20/18 07:54 (Catapres) 0.1 mg Q6H PRN PO 03/20/18 02:00 03/20/18 02:18 (Apresoline Inj) 10 mg Q6HR PRN IV PUSH 03/20/18 05:30 03/20/18 06:30 Sodium Chloride 1,000 ml @ 0 mls/hr Q0M PRN OTHER 03/20/18 08:40 (Heparin Inj) 8,000 units UNSCH PRN IV FLUSH 03/20/18 08:45 Sodium Chloride 1,000 ml @ 200 mls/hr Q5H PRN IV 03/20/18 08:40 Sodium Chloride 1,000 ml @ 0 mls/hr Q0M PRN OTHER 03/20/18 08:40 (Mannitol Inj) 12.5 gm UNSCH PRN IV 03/20/18 08:45 Albumin Human 100 ml @ 60 mls/hr UNSCH PRN IV 03/20/18 08:45 (NS Flush) 5 ml UNSCH PRN IV FLUSH 03/20/18 08:45 (Heparin Inj) UNSCH PRN .XX 03/20/18 08:45 (Gentamicin Inj) 20 mg UNSCH PRN OTHER 03/20/18 08:45 (Tylenol) 650 mg UNSCH PRN PO 03/20/18 08:45 (Nitrostat Sl) 0.4 mg UNSCH PRN SL 03/20/18 08:45 (Catapres) 0.1 mg UNSCH PRN PO 03/20/18 08:45 (Gelfoam 12 Mm/7 Mm Top) 1 foam UNSCH PRN TOP 03/20/18 08:45 (Duragesic 100 Mcg Patch.72 Hr) 1 patch Q2D T-DERMAL 03/20/18 09:00 UNV (Norvasc) 10 mg DAILY PO 03/20/18 09:00 Family History Non contributory Social History Lives with mother Ambulatory but needs assistance Non smoking, denies ETOH and drug use Full code (Janie Phelan) Physical Exam Vital Signs Vital Signs Date Time Temp Pulse Resp B/P (MAP) Pulse Ox O2 Delivery O2 Flow Rate FiO2 03/20/18 07:40 98.9 60 18 183/97 (125) 97 03/20/18 06:27 77 18 206/111 (142) 99 03/20/18 03:52 98.0 64 16 184/104 (130) 99 03/20/18 02:10 98.7 60 16 177/104 (128) 95 03/20/18 00:08 98.9 59 16 189/109 (135) 98 03/19/18 20:36 98.1 63 16 180/100 (126) 98 03/19/18 18:38 03/19/18 17:30 54 16 175/85 (115) 98 Room Air 03/19/18 17:00 52 16 188/100 (129) 99 Room Air 03/19/18 16:00 58 16 200/104 (136) 98 Room Air 03/19/18 14:15 54 16 188/104 (132) 98 Room Air 03/19/18 14:00 60 16 98 Room Air 03/19/18 13:48 98.4 65 16 202/104 (136) 98 Physical Exam Young male patent Awake, alert, moves all extremities No focal neuro deficit PERRLA S1/S2, RRR Lungs clear Ext without edema, LUE AVF patent. Laboratory Laboratory Tests Test 03/19/18 14:30 03/19/18 15:20 03/20/18 05:13 White Blood Count 3.2 3.6 Red Blood Count 3.47 3.73 Hemoglobin 10.4 11.0 Hematocrit 31.1 33.4 Mean Corpuscular Volume 89.6 89.4 Mean Corpuscular Hemoglobin 30.0 29.6 Mean Corpuscular Hemoglobin Concent 33.5 33.1 Red Cell Distribution Width 15.3 15.3 Platelet Count 120 133 Mean Platelet Volume 11.6 10.7 Neutrophils (%) (Auto) 69.6 61.8 Lymphocytes (%) (Auto) 21.0 31.7 Monocytes (%) (Auto) 7.0 5.4 Eosinophils (%) (Auto) 1.2 0.6 Basophils (%) (Auto) 1.2 0.5 Neutrophils # (Auto) 2.3 2.2 Lymphocytes # (Auto) 0.7 1.1 Monocytes # (Auto) 0.2 0.2 Eosinophils # (Auto) 0.0 0.0 Basophils # (Auto) 0.0 0.0 CBC Comment DIFF FINAL DIFF FINAL Differential Comment Blood Urea Nitrogen 20 Creatinine 5.52 Random Glucose 78 Total Protein 6.3 Albumin 3.6 Calcium Level 8.9 Alkaline Phosphatase 101 Aspartate Amino Transf (AST/SGOT) 12 Alanine Aminotransferase (ALT/SGPT) 18 Total Bilirubin 0.6 Sodium Level 142 Potassium Level 4.0 Chloride Level 105 Carbon Dioxide Level 26.6 Anion Gap 10 Estimat Glomerular Filtration Rate 13 (Janie Phelan) Result Diagram: 03/20/18 0513 03/19/18 1520 Imaging Last [address] 03/19/18 0000 Signed Impressions: CONCLUSION: 1. Mild diffuse cerebral atrophy out of proportion to age. 2. No acute intracranial abnormality. (Janie Phelan) Assessment and Plan Problem List: (1) ESRD needing dialysis ICD Codes: N18.6 - End stage renal disease; Z99.2 - Dependence on renal dialysis Status: Chronic Plan: Typical TTS HD, had over 2 hrs of treatment yesterday No indication for treatment today AVF on left side, protect that extremity. High protein diet ordered Resume Renvela for metabolic bone disorder Avoid IVF (2) HTN (hypertension) ICD Codes: I10 - Essential (primary) hypertension Status: Chronic Plan: Needs better blood pressure control on Losartan, resume doxazosin change metoprolol to coreg start amlodipine His BP has been high in the clinic Avoid IVF Defer giving Epogen due to hypertension (3) Seizure ICD Codes: R56.9 - Unspecified convulsions Status: Acute Plan: CT negative No seizures since arrival Due to HTN? (Janie Phelan) Assessment and Plan patient was seen and examined. 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 Has narcotic dependency. BP was high, had seizures yesterday. Was not on any anti seizure medication. Neurology evaluation. Needs better control of hypertension. Dialysis tomorrow. He is interested in PD, but I am concerned about his compliance. We will monitor on HD for the time being. (Jewel Hunt MD) Janie Phelan March 20, 2018 09:41 Jewel Hunt MD March 20, 2018 14:58
[2018-03-20] MEDS: CARVEDILOL 3.125 MG TAB PO SCH ×2 (11:54→22:08)
[2018-03-20] MEDS: SEVELAMER CARBONATE 800 MG TAB PO SCH ×2 (14:06→19:18)
--- NOTE | 2018-03-20 14:19 | EKG ---
Date Performed: 03/19/2018 Time Performed: 13:51:32 PTAGE: 27 years EKG: Sinus rhythm POSSIBLE LEFT ATRIAL ENLARGEMENT POSSIBLE RIGHT VENTRICULAR CONDUCTION DELAY POSSIBLE LEFT VENTRICUL AR HYPERTROPHY PROLONGED QT INTERVAL ABNORMAL ECG PREVIOUS TRACING : 01/02/2018 20.43 DOCTOR: Gage Billings Interpretating Date/Time 03/20/2018 14:19:34
[2018-03-20] MEDS: levETIRAcetam 500 MG TAB PO SCH (16:32)
--- NOTE | 2018-03-20 17:01 | MB ---
cc: Gem Tobias MD, Dalia MD DATE: 03/20/2018 REASON FOR CONSULTATION: Seizure. HISTORY OF PRESENT ILLNESS: This is a 27-year-old male with a history of Nubia's granulomatosis, seizure x2. The first seizure was in December. He was at [facility]. He states that it was due to a vessel on his brain that was tight. He has a history of end-stage renal disease, osteoporosis, back pain today after the seizure. Apparently, he was at dialysis the day of admission when he had a seizure-like event. His blood pressure he states was really high. He may have had up to 3 seizures in dialysis. He was given 2 mg of Versed and it looked like he might have been postictal. He is back to baseline today. He is conversant, able to elaborate that they thought that he had some intracranial disease at [facility]. They gave him some Dilantin back in December, but he did not like the side effects and did not take it. PAST MEDICAL HISTORY: As stated. He has a fistula in the left arm. ALLERGIES: CEFAZOLIN, DIPHENHYDRAMINE, FENTANYL, ZOLPIDEM. FAMILY HISTORY: Heart problems in the father, diabetes. Mother RSD and arthritis. SOCIAL HISTORY: Lives with his mother. No alcohol, tobacco, or drugs. PHYSICAL EXAMINATION: VITAL SIGNS: Stable. Blood pressure 151/92, pulse 61, respiratory rate of 18. GENERAL: He is awake, alert, oriented and fluent. NEUROLOGIC: Pupils reactive. Face symmetrical. Tongue midline. Motor: No drift, no weakness. No drift or leg lag. Gait is withheld. LABORATORY DATA: Reviewed. His white count 3.6, hemoglobin 11, platelets 133,000. Chemistries: BUN 20, creatinine 5.52. ASSESSMENT AND PLAN: A 27-year-old male status post what appears to be seizure on multiple medications, currently on Cardura, Renvela, Coreg, Lexapro, Cozaar, Duragesic patch 100 ,mcg and Norvasc who presents with what appears to be seizure. This sounds like it may have been his second event. It sounds that he may have had a couple extra seizures yesterday in dialysis. I would recommend maintaining seizure precautions. He had an electroencephalogram. We will look at that results; however, concerning would be that he drives. He should not be driving for at least 6 months. No climbing ladders, swimming alone or bathing alone in the bathtub. Certainly, he can be started on antiepileptic medications, but he did not agree with Dilantin. Sporadically he has migraines. Certainly, we can put him on a low-dose Depakote, but we would have to watch his white count. For his chronic pain, I am not sure gabapentin would give much benefit from that, but that is another option. I do not want to put him on lacosamide. It may cause some cardiac dysrhythmia. We could try and I think at this point in time what I am going to do is put him on Keppra 500 mg a day and just see how he tolerates that. If no side effects from the medicine, he can stay on that. Otherwise, other options could be entertained, but at this point I will go ahead and get an MRI/MRA of the brain to see if he has any intracranial disease or anything else that could predispose him to seizures. If his workup is unremarkable, from my perspective he can be discharged tomorrow on Keppra 500 mg a day. MD NICKI Pabon/ , 03:21 PM , 05:00 PM
[2018-03-20] MEDS ORDERED: LORazepam 2 MG/ML VIAL IV PUSH ONE (20:45)
[2018-03-20] MEDS ORDERED: LORazepam 1 MG TAB PO ONE (20:45)
[2018-03-20] MEDS ORDERED: DOXAZOSIN MESYLATE 4 MG TAB PO SCH (21:00)
[2018-03-21 00:03] VITALS: PULSE 57
[2018-03-21 03:14] VITALS: BP 129/82; PULSE 60; RESP 16; TEMP 98.1; O2SAT 94
[2018-03-21] MEDS: ALPRAZolam 1 MG TAB PO PRN (04:17)
--- NOTE | 2018-03-21 07:22 | MG ---
cc: Gem Tobias MD DATE: 03/20/2018 ELECTROENCEPHALOGRAM NUMBER: [id number]. REFERRING PHYSICIAN: Dr. Eaton referred. ROOM: F. CONDITION AND INDICATIONS: With photic stimulation, awake, drowsy, sleep study, admitted with a seizure after dialysis. DESCRIPTION OF RECORD: The patient has a normal background alpha of 9 Hz, 20-40 microvolts. Overall, symmetrical background. Diffuse, fairly well organized. Some minor artifact. Washcloth was put over the eyes to decrease the artifact. However, there are no epileptiform features. His EKG does look sinus. Photic stimulation does elicit a posterior driving response. IMPRESSION: Overall, normal appearing EEG. No epileptiform features in this recording. Clinical correlation. MD NICKI Pabon/FLACA , 05:01 PM , 05:20 PM
[2018-03-21 07:51] VITALS: BP 129/79; PULSE 62; RESP 18; TEMP 98; O2SAT 96
[2018-03-21] MEDS: SEVELAMER CARBONATE 800 MG TAB PO SCH ×3 (08:18→16:28)
[2018-03-21] MEDS: SODIUM CHLORIDE 0.9% FLUSH 10 ML FLUSH IV FLUSH SCH (08:18)
[2018-03-21] MEDS: levETIRAcetam 500 MG TAB PO SCH (08:19)
[2018-03-21] MEDS: LOSARTAN 50 MG TAB PO SCH (08:19)
[2018-03-21] MEDS: CARVEDILOL 3.125 MG TAB PO SCH (08:19)
[2018-03-21] MEDS: ESCITALOPRAM OXALATE 20 MG TAB PO SCH (08:19)
[2018-03-21] MEDS: ACETAMINOPHEN/HYDROcodone 325 MG/10 MG TAB PO PRN ×2 (08:20→16:27)
--- NOTE | 2018-03-21 08:41 | HHI.NPPN ---
Subjective Interval History BP is better. Seen by Neurology. Keppra started. Objective Data Data Vital Signs Date Time Temp Pulse Resp B/P (MAP) Pulse Ox O2 Delivery O2 Flow Rate FiO2 03/21/18 07:51 98.0 62 18 129/79 (96) 96 03/21/18 03:14 98.1 60 16 129/82 (98) 94 03/21/18 00:03 57 03/20/18 23:50 18 03/20/18 23:40 98.7 61 16 128/80 (96) 94 03/20/18 21:50 123/74 (90) 03/20/18 20:43 98.4 66 16 130/77 (94) 94 03/20/18 20:06 64 03/20/18 19:50 98 03/20/18 16:12 98.7 64 18 141/87 (105) 97 03/20/18 14:15 151/92 (111) 03/20/18 13:23 97.8 61 18 195/100 (131) 98 03/20/18 09:57 61 18 149/92 (111) -: 03/20/18 0513 03/19/18 1520 Physical Exam General Appearance: Well Developed, No Acute Distress Pulmonary Resp Exam: Clear Bilaterally Cardiology CV Exam: Regular Gastrointestinal/Abdomen GI Exam: Soft, Non-Tender Assessment/Plan Problem List: (1) ESRD needing dialysis ICD Codes: N18.6 - End stage renal disease; Z99.2 - Dependence on renal dialysis Status: Chronic Plan: Dialysis today before discharge. Monitor fluid and electrolytes. Avoid Gadolinium. (2) HTN (hypertension) ICD Codes: I10 - Essential (primary) hypertension Status: Chronic Plan: BP is better. Continue current medications. Compliance is a question. (3) Seizure ICD Codes: R56.9 - Unspecified convulsions Status: Acute Plan: CT negative No seizures since arrival Due to HTN? Plan Patient was placed on Keppra. Neurology has seen him. MRI and MRA ordered. Patient can be discharged from renal standpoint. Jewel Hunt MD March 21, 2018 08:41
--- NOTE | 2018-03-21 10:52 | HHI.FPPN ---
Subjective Remarks Patient reports feeling well. He denies any seizures. Discussed plan of care with patient. (Gabe Hassan MD R2) Objective Vitals Vital Signs Date Time Temp Pulse Resp B/P (MAP) Pulse Ox O2 Delivery O2 Flow Rate FiO2 03/21/18 09:20 18 03/21/18 07:51 98.0 62 18 129/79 (96) 96 03/21/18 03:14 98.1 60 16 129/82 (98) 94 03/21/18 00:03 57 03/20/18 23:40 98.7 61 16 128/80 (96) 94 03/20/18 21:50 123/74 (90) 03/20/18 20:43 98.4 66 16 130/77 (94) 94 03/20/18 20:06 64 03/20/18 19:50 98 03/20/18 16:12 98.7 64 18 141/87 (105) 97 03/20/18 14:15 151/92 (111) 03/20/18 13:23 97.8 61 18 195/100 (131) 98 (Gabe Hassan MD R2) Result Diagram: 03/20/18 0513 03/19/18 1520 Objective Remarks GENERAL: This is a well-nourished, well-developed thin male patient, in no apparent distress lying comfortably in dialysis bed. SKIN: AV fistula left arm. Diffusely scarred from acne. No rashes, ecchymoses or lesions. Cool and dry. HEAD: Atraumatic. Normocephalic. EYES: Pupils equal round and reactive. Extraocular motions intact. No scleral icterus. No injection or drainage. ENT: Nose without bleeding, purulent drainage or septal hematoma. Throat without erythema, tonsillar hypertrophy or exudate. Uvula midline. Airway patent. NECK: Trachea midline. No JVD or lymphadenopathy. Supple, nontender, no meningeal signs. CARDIOVASCULAR: RRR, S1 S2. 2/6 systolic murmur heard at LUSB and LLSB. S4 audible. RESPIRATORY: Clear to auscultation. Breath sounds equal bilaterally. No wheezes , rales, or rhonchi. GASTROINTESTINAL: Abdomen soft, non-tender, nondistended. No rebounding or guarding. MUSCULOSKELETAL: Extremities without clubbing, cyanosis, or edema. No joint tenderness, effusion, or edema noted. No calf tenderness. NEUROLOGICAL: Awake and alert. Cranial nerves II through XII grossly intact. Motor and sensory grossly within normal limits. Normal speech. (Gabe Hassan MD R2) A/P Assessment and Plan 27-year-old male with past history of Nubia's granulomatosis, seizure, ESRD, osteoporosis, chronic back pain who presented following a seizure during dialysis. Neurology was consulted and recommended workup and d/c on Keppra. Discharge Planning Pending echo and MRI (Gabe Hassan MD R2) Attending Attestation Patient seen and examined, and discussed with resident team. I agree with assessment and management as documented and discussed with me. Pt is seen in dialysis. He is without complaints. He expresses understanding regarding his safety after having a seizure, such as no driving x 6 months. He feels ready for discharge today. (Leonie De Souza MD) Problem List: (1) Seizure ICD Codes: R56.9 - Unspecified convulsions Status: Acute Plan: CT head without contrast with cerebral atrophy out of proportion to patient's age. -lorazepam 2 mg IV as needed for seizure-like activity -Neurology consult, recommended MRI, plan to discharge patient on Keppra 500 mg -EEG unremarkable -Echo -Brain MRI -Seizure precautions, neuro checks every 4 h, bedrest with bathroom privileges (2) ESRD needing dialysis ICD Codes: N18.6 - End stage renal disease; Z99.2 - Dependence on renal dialysis Status: Chronic Plan: Patient with end-stage renal disease on dialysis. -Consult nephrology, , continue scheduled dialysis, appreciate recommendations -Resume Renvela for metabolic bone disorder -avoid IVF (3) HTN (hypertension) ICD Codes: I10 - Essential (primary) hypertension Status: Chronic Plan: History of hypertension -Continue medications, per nephro: on Losartan, resume doxazosin change metoprolol to coreg start amlodipine -Clonidine and hydralazine have been added PRN for hypertensive urgency (4) Chronic back pain ICD Codes: M54.9 - Dorsalgia, unspecified; G89.29 - Other chronic pain Status: Chronic Plan: History of chronic back pain, reported to be due to osteoporosis secondary to chronic steroid use. On a chronic opioid. -Continue home medication, hydrocodone 10 every 6 hours as needed -Restart home fentanyl patch; pt confirms that he does NOT have an allergy to fentanyl. (5) Pancytopenia ICD Codes: D61.818 - Other pancytopenia Plan: secondary to ESRD. Possibly dilutional. rechecked CBC stable. (Gabe Hassan MD R2) Gabe Hassan MD R2 March 21, 2018 10:52 Leonie De Souza MD March 21, 2018 21:11
[2018-03-21] MEDS ORDERED: LORazepam 2 MG/ML VIAL IV PUSH ONE (12:30)
[2018-03-21 13:55] VITALS: O2SAT 97
--- NOTE | 2018-03-21 16:09 | ECHRPT ---
Indication: [place] [facility] CONCLUSIONS The transthoracic study is normal by two-dimensional, color flow imaging and Doppler interrogation. BP: / HR: Rhythm: MEASUREMENTS (Male / Female) Normal Values Technical Quality: 2D ECHO LV Diastolic Diameter PLAX 5.0 cm 4.2 - 5.9 / 3.9 - 5.3 cm LV Systolic Diameter PLAX 3.5 cm IVS Diastolic Thickness 1.3 cm 0.6 - 1.0 / 0.6 - 0.9 cm LVPW Diastolic Thickness 0.8 cm 0.6 - 1.0 / 0.6 - 0.9 cm LV Relative Wall Thickness 0.4 RV Internal Dim ED PLAX 2.1 cm LA Systolic Diameter LX 4.2 cm 3.0 - 4.0 / 2.7 - 3.8 cm M-MODE AV Cusp Separation MM 1.9 cm DOPPLER Mitral E Point Velocity 110.0 cm/s Mitral A Point Velocity 69.1 cm/s Mitral E to A Ratio 1.6 TR Peak Velocity 204.0 cm/s TR Peak Gradient 16.6 mmHg Right Atrial Pressure 5.0 mmHg Pulmonary Artery Systolic Pressu 21.6 mmHg Right Ventricular Systolic Press 21.6 mmHg FINDINGS LEFT VENTRICLE Normal left ventricular size. Mild concentric left ventricular hypertrophy. The left ventricular systolic function is normal with an estimated ejection fraction in the range of 60-65%. RIGHT VENTRICLE Normal right ventricular size and systolic function. LEFT ATRIUM The left atrial size is normal. RIGHT ATRIUM The right atrial size is normal. ATRIAL SEPTUM Normal atrial septal thickness without atrial level shunting by limited color doppler interrogation. AORTA The aortic root and proximal ascending aorta are normal in size on limited imaging. MITRAL VALVE Structurally normal mitral valve. No mitral valve stenosis or regurgitation. AORTIC VALVE Trace aortic valve regurgitation. TRICUSPID VALVE There is trace tricuspid valve regurgitation. PULMONARY VALVE No pulmonary valve regurgitation or stenosis. VESSELS The inferior vena cava is normal in size. PERICARDIUM No pericardial effusion. Gage Billings MD, FACC (Electronically Signed) Final Date:21 Mar 2018 16:08
--- NOTE | 2018-03-21 16:21 | RADRPT ---
EXAM DATE: 03/21/2018 4:16 PM EDT AGE/SEX: 27 years / Male INDICATIONS: Seizures. CLINICAL DATA: This is the patient's subsequent encounter. Patient reports that signs and symptoms h ave been present for 2 days and indicates a pain score of 0/10. MEDICAL/SURGICAL HISTORY: . Renal . Placement of AV Fistula 2012 COMPARISON: [facility] [place], CT BRAIN W/O CONTRAST, 03/19/2018. . TECHNIQUE: Multiplanar, multisequence examination of the brain was performed without contrast. FINDINGS: Cerebrum: The ventricles are normal for age. No evidence of midline shift, mass lesion, hemorrhage or acute infarction. No extraaxial fluid collections are seen. The pituitary gland and suprasellar cistern are normal in configuration. White Matter: No significant signal abnormalities are seen in the white matter. Posterior Fossa: The cerebellum and brainstem are intact. The 4th ventricle is midline. The cerebel lopontine angle is unremarkable. The cerebellar tonsils are normal in position. Diffusion Imaging: No focal areas of restricted diffusion are seen. No evidence of acute infarction . Extracranial: The visualized portions of the orbits and paranasal sinuses are unremarkable.. T2 sign al abnormality within the left mastoid air cells CONCLUSION: 1. No acute intracranial abnormality. 2. T2 signal abnormality left mastoid air cells could be related to mastoiditis in the right clinica l setting. Electronically signed by: Jeffrey Krishnan MD 03/21/2018 4:19 PM EDT
--- NOTE | 2018-03-21 16:22 | RADRPT ---
EXAM DATE: 03/21/2018 4:08 PM EDT AGE/SEX: 27 years / Male INDICATIONS: Seizures. CLINICAL DATA: This is the patient's subsequent encounter. Patient reports that signs and symptoms h ave been present for 2 days and indicates a pain score of 0/10. MEDICAL/SURGICAL HISTORY: . Renal . Placement of AV Fistula in 2012 COMPARISON: No prior [facility] exams available for comparison. TECHNIQUE: 3D [id number] MRA was performed. Source images, multiplanar STS MIP, and 3D volum e MIP reconstructions were reviewed. FINDINGS: There is excellent visualization of the major intracranial arteries out to the second-order branch ve ssels. There is no evidence for aneurysm, vessel truncation or stenosis, and no evidence for vascula r malformation. Vertebrobasilar junction normal. Basilar artery is normal. The anterior, middle and p osterior tibial arteries are normal. Anterior communicating artery and posterior communicating arteri es are not seen. CONCLUSION: 1. Normal MRA of the brain. 2. No large vessel stenosis or aneurysm. Electronically signed by: Jeffrey Krishnan MD 03/21/2018 4:20 PM EDT
[2018-03-21 16:27] VITALS: BP 124/68; PULSE 71; RESP 18; TEMP 98.9; O2SAT 95
[2018-03-21] MEDS ORDERED: AMLO10 PO (17:06)
[2018-03-21] MEDS ORDERED: CARV3.125 PO (17:06)
[2018-03-21] MEDS ORDERED: LOSA100T PO (17:06)
[2018-03-21] MEDS ORDERED: LEVE500 PO (17:06)
[2018-03-21] MEDS ORDERED: CARD4TAB2 PO (17:06)
[2018-03-21] MEDS ORDERED: SEVEL800 PO (17:06)
--- NOTE | 2018-03-21 17:07 | HHI.DCPOC ---
Discharge Care Plan Diagnosis: (1) Seizure (2) Pancytopenia (3) HTN (hypertension) (4) Chronic back pain (5) ESRD needing dialysis Goals to Promote Your Health * To prevent worsening of your condition and complications, please take medications as prescribed and continue your scheduled dialysis. * To maintain your health at the optimal level, please follow up with doctors as recommended. Directions to Meet Your Goals Take your medications as prescribed Follow your dietary instruction Follow activity as directed Keep your appointments as scheduled Take your immunizations and boosters as scheduled If your symptoms worsen call your PCP, if no PCP go to Urgent Care Center or Emergency Room Smoking is Dangerous to Your Health. Avoid second hand smoke Call the 24-hour hour crisis hotline for domestic abuse at Gabe Hassan MD R2 March 21, 2018 17:07
[2018-03-21 17:27] VITALS: RESP 18
== END 2018-03-21 18:35 | disposition home or self-care (01) | DRG 100 ==
LOC: NEPC 13:48 → NEDA 16:59 → NEPFCDU 18:36 → OBSVTOIN 03-20 16:12
PROVIDERS: ADMIT Family Medicine; ATTEND Family Medicine
PROC: 5A1D70Z Performance of Urinary Filtration, Intermittent, Less than 6 Hours Per Day (ICD-10-PCS; principal; 2018-03-20)
DX: G40.409 Other generalized epilepsy and epileptic syndromes, not intractable, without status epilepticus (principal); N18.6 End stage renal disease; M31.30 Wegener's granulomatosis without renal involvement; D61.818 Other pancytopenia; I12.0 Hypertensive chronic kidney disease with stage 5 chronic kidney disease or end stage renal disease; E88.89 Other specified metabolic disorders; D80.2 Selective deficiency of immunoglobulin A [IgA]; F11.20 Opioid dependence, uncomplicated; I16.0 Hypertensive urgency; M89.8X9 Other specified disorders of bone, unspecified site; G31.9 Degenerative disease of nervous system, unspecified; G43.909 Migraine, unspecified, not intractable, without status migrainosus; G89.29 Other chronic pain; M54.9 Dorsalgia, unspecified; D64.9 Anemia, unspecified; M48.00 Spinal stenosis, site unspecified; R01.1 Cardiac murmur, unspecified; M81.8 Other osteoporosis without current pathological fracture; T38.0X5A Adverse effect of glucocorticoids and synthetic analogues, initial encounter; Z79.52 Long term (current) use of systemic steroids; Z79.891 Long term (current) use of opiate analgesic; Z79.899 Other long term (current) drug therapy; Z99.2 Dependence on renal dialysis; Z88.5 Allergy status to narcotic agent; Z88.1 Allergy status to other antibiotic agents; Z88.8 Allergy status to other drugs, medicaments and biological substances
CPT/HCPCS: 70450; 70544; 70551; 80053; 85025; 90935; 93005; 93306; 95819; 99285; G0378; G8987-GP; G8988-GP; J0360; J2060